=== PATIENT | female | born 1975 | race Caucasian/White ===

== ENCOUNTER 2018-12-11 18:42 | Inpatient (IN) | payer SELFPAY ==
[~2018-12-11] VITALS: Ht 167.6 cm; Wt 54.4 kg
[2018-12-11] MEDS ORDERED: OLANZAPINE 10 MG VIAL IM ONE ×2 (18:52→19:00)
[2018-12-11] MEDS ORDERED: IV NORMAL SALINE 1000 ML BAG IV ONE (19:00)
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
[2018-12-11 19:18] LABS: BASOPHILS % (AUTO) 0.2 % (0.0-2.0); EOSINOPHILS % (AUTO) 0.8 % (0.0-7.0); HEMATOCRIT 36.4 % (31.2-41.9); HEMOGLOBIN 11.9 g/dL (10.9-14.3); LYMPHOCYTES # (AUTO) 1.2 K/uL (20.0-40.0); LYMPHOCYTES % (AUTO) 20.9 % (20.5-51.5); MEAN CORPUSCULAR HEMOGLOBIN 29.4 uug (24.7-32.8); MEAN CORPUSCULAR HGB CONC 33 g/dL (32.3-35.6); MONOCYTES # (AUTO) 0.5 K/uL (2.0-10.0); MONOCYTES % (AUTO) 8.1 % (0.0-11.0); NEUTROPHILS # (AUTO) 3.9 K/uL (1.8-8.9); PLATELET COUNT (AUTO) 199 K/uL (179-408); RED BLOOD CELL COUNT(AUTO) 4.04 MIL/uL (3.63-4.92); WHITE BLOOD COUNT (AUTO) 5.6 K/uL (3.8-11.8)
[2018-12-11 19:25] LABS: CARBON DIOXIDE 23 mmol/L (21-32); CHLORIDE 107 mmol/L (98-107); GLUCOSE 134 mg/dL (74-106); POTASSIUM 3.7 mmol/L (3.5-5.1); UREA NITROGEN, BLOOD 12 mg/dL (7-18)
[2018-12-11 19:31] LABS: ALANINE AMINOTRANSFERASE 21 U/L (14-59); ALKALINE PHOSPHATASE 57 U/L (50-136); ASPARTATE AMINOTRANSFERASE 19 U/L (15-37); BILIRUBIN,DIRECT 0.2 mg/dL (0.0-0.2); BILIRUBIN,TOTAL 0.8 mg/dL (0.2-1.0); CREATINE KINASE, TOTAL 51 U/L (26-192); TOTAL PROTEIN, SERUM 6.8 g/dL (6.4-8.2)
[2018-12-11 19:32] LABS: ACETAMINOPHEN < 2.0 ug/mL (10-30)
[2018-12-11 19:34] LABS: ETHANOL < 3 MG/DL (0-0)
[2018-12-11] MEDS ORDERED: LORAZEPAM 2 MG/1 ML VIAL IV ONE (19:45)
[2018-12-11] MEDS ORDERED: LORAZEPAM 2 MG/1 ML VIAL ONE (19:47)
[2018-12-11 19:51] LABS: THYROID STIMULATING HORMONE 0.016 mIU/mL (0.358-3.740)
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
--- NOTE | 2018-12-11 20:05 | NUR ---
TRIAL OF 1PT RESTRAINT FAILED PT KEPT ASKING "WHERE IS [facility]? WHAT YEAR IS IT?" RETURNED TO 2PT SOFT B/L WRIST RESTAINTS REASSESSEDQ2, VISUAL CHECKS Q15 SKIN INTACT REFUSED REPOSITION
--- NOTE | 2018-12-11 21:13 | NUR ---
REFUSED TO DO CT AT THIS TIME. ERMD AWARE PT IS ASLEEP BUT EASILY ROUSED WILL VERBALIZE: " WHERE IS [facility]? WHAT YEAR IS IT?" REORIENTED PT COMPLIANT NAD REASSESSED SOFT RESTRAINTS Q2, VISUAL CHECK Q15 REPOSITION REFUSED
[2018-12-11 21:15] LABS: *BILIRUBIN,URIN NEGATIVE (NEGATIVE); *CLARITY,URINE SLIGHTLY CLOUDY (CLEAR); *COLOR,URINE YELLOW (YELLOW); *KETONES,URINE NEGATIVE (NEGATIVE); *UROBILINOGEN,URINE 0.2 E.U./dl (NORMAL); LEUKOCYTE ESTERASE ,URINE TRACE (NEGATIVE); NITRITE, URINE POSITIVE (NEGATIVE); UGLUCOSE NEGATIVE (NEGATIVE)
[2018-12-11 21:20] LABS: *AMPHETAMINE, URINE NEGATIVE (NEGATIVE); *BARBITURATE, URINE NEGATIVE (NEGATIVE); *CANNABINOID, URINE POSITIVE (NEGATIVE); *COCCAINE, URINE NEGATIVE (NEGATIVE); *OPIATE, URINE NEGATIVE (NEGATIVE); *PHENCYCLIDINE SCREEN,URINE NEGATIVE (NEGATIVE)
[2018-12-11 21:34] LABS: *BLOOD, URINE TRACE (NEGATIVE)
[2018-12-11 21:39] LABS: BACTERIA,URINE MANY /HPF (NONE SEEN); CALCIUM OXALATE CRYSTALS,UR FEW /HPF (NONE SEEN); MUCUS,URINE FEW /LPF (0-FEW); SQUAMOUS EPITHELIAL CELL,UR FEW /HPF (NONE SEEN)
--- NOTE | 2018-12-11 21:41 | NUR ---
AYAD BOWL SANDER FAILED TO TAKE HX FROM PT PT IS SLEEPING BUT EASILY ROUSED PT IS BASELINE POOR HISTORIAN UPON ADMISSION TO ER
--- NOTE | 2018-12-11 21:51 | NUR ---
Dr. Riggs on panel call with Dr. Liam Jon.
--- NOTE | 2018-12-11 22:19 | NUR ---
HAND OFF AND SBAR GIVEN TO LINDEN RN G20 ON LEFT WRIST. PT WILL BE ADMITTED TO TELE RM [address] ARIELLE GARCIA PT STILL ON SOFT RESTRAINTS, UNABLE TO COMPLY WITH 1PT TRIAL SIDERAILSX2 UP BED AT LOWEST POSITION [id number] AT BEDSIDE
--- NOTE | 2018-12-11 23:15 | NUR ---
PT BELONGINGS LIST CONFIRMED AND SIGNED BY 2RNS PT BELONGINGS INCLUDED UNLABELED MEDICATIONS AND CONTRABAND (CANNABIS PRODUCTS) DRILL OPERATOR, SECURITY AND RECEIVING UNIT AWARE. SAID MEDICATIONS AND CONTRABAND WAS PLACED IN A SEPARATE BAG ALONG WITH PT BELONGINGS UPON TRANSFER OF PT TRANSFERED VIA [facility] ACCOMPANIED BY ER PERSONAL PROPERTY APPRAISER PT NAD, ON SOFT RESTRAINTS B/L WRIST REASSESSED Q2 WITH VISUAL CHECKS Q15, REFUSED REPOSITIONING [id number] AT BEDSIDE SIDERAILSX2 UP, BED AT LOWEST POSITION
[2018-12-12] VITALS: BP 98/50
--- NOTE | 2018-12-12 | NUR ---
admitted this pt from er via gurney,accompanied by er nurse,with altered mental status,appears weak and very sleepy, uncooperative, refused to be assessed,getting suspicious of the nursing personnel taking care of her. unable to gather information ,kept warm and comfortable,personal belongings inventoried appropriately,admission care rendered.
[2018-12-12 00:10] VITALS: BP 90/45
[2018-12-12] MEDS ORDERED: LORAZEPAM 2 MG/1 ML VIAL IV PRN (00:15)
--- NOTE | 2018-12-12 00:30 | NUR ---
vital signs taken and recorded ,on tele sinus arrythmia noted,,pt got up hurriedly and wanting to go to the airport.attention span very short term.
[2018-12-12] MEDS ORDERED: IV NS 1000 ML 1,000 ML IV PRN (00:45)
--- NOTE | 2018-12-12 01:15 | NUR ---
ekg done by rt, took a lot of explanation before she agreed to have it done. high risk for fall, assisted to go to br and void, urine cloudy and yellow. pt appears unkept, wanting to shower at this time, getting agitated and aggressive, md notified and admission orders obtained. ivf normal saline @80ml/hr via left wrist iv site. ativan 1 mg given as ordered to help pt to calm down.slept intermittently.closely monitored for safety and comfort. needs attended to.
[2018-12-12] MEDS ORDERED: ONDANSETRON 4 MG/2 ML VIAL IV PRN (02:00)
[2018-12-12] MEDS ORDERED: ACETAMINOPHEN 325 MG TABLET PO PRN (02:00)
--- NOTE | 2018-12-12 03:00 | NUR ---
NO ACUTE DISTRESS NOTED, STILL ON TELE SR/SB 58, SLEPT AT LONG INTERVALS, NOTHING UNUSUAL NOTED,CONTINUE TO MONITOR CLOSELY.
[2018-12-12 05:11] VITALS: BP 105/52
[2018-12-12 05:12] VITALS: BP 105/52
--- NOTE | 2018-12-12 06:08 | NUR ---
REFUSED TO HAVE BLOOD DRAW AT THIS TIME,WILL TRY AT A LATER TIME.
[2018-12-12] MEDS ORDERED: PANTOPRAZOLE SODIUM 40 MG TABLET.DR PO SCH (07:00)
--- NOTE | 2018-12-12 08:22 | NUR ---
Received pt. resting in bed asleep easily arousable. Pt. denies any pain or discomfort. Pt. denies SOB or difficulty breathing. Pt. has IV in L wrist 20 gauge intact patent running NS 80 cc/ hr. Normal Sinus Rhythm. Safety measures in place. Call llight within reach. Will continue to monitor pt.
--- NOTE | 2018-12-12 08:27 | NUR ---
Pt. awake and alert. Pt. is calm and cooperative. Wanting to know plan of care. SPLUNK DASHBOARD DEVELOPER at bedside discussing plan of care with pt. Will continue to monitor pt.
[2018-12-12 08:47] LABS: BASOPHILS % (AUTO) 0.2 % (0.0-2.0); EOSINOPHILS % (AUTO) 0.9 % (0.0-7.0); HEMATOCRIT 35.9 % (31.2-41.9); HEMOGLOBIN 11.8 g/dL (10.9-14.3); LYMPHOCYTES # (AUTO) 1.5 K/uL (20.0-40.0); LYMPHOCYTES % (AUTO) 30.1 % (20.5-51.5); MEAN CORPUSCULAR HEMOGLOBIN 29.4 uug (24.7-32.8); MEAN CORPUSCULAR HGB CONC 33 g/dL (32.3-35.6); MEAN CORPUSCULAR VOLUME 89.9 fL (75.5-95.3); MONOCYTES # (AUTO) 0.4 K/uL (2.0-10.0); MONOCYTES % (AUTO) 7.9 % (0.0-11.0); NEUTROPHILS % (AUTO) 60.9 % (38.5-71.5); PLATELET COUNT (AUTO) 184 K/uL (179-408); WHITE BLOOD COUNT (AUTO) 4.9 K/uL (3.8-11.8)
[2018-12-12] MEDS ORDERED: CEFTRIAXONE 1 G in IV DEXTROSE 5% 50 ML IV SCH (09:00)
[2018-12-12 09:13] LABS: BILIRUBIN,TOTAL 1.4 mg/dL (0.2-1.0); CREATININE 0.7 mg/dL (0.6-1.3); MAGNESIUM 1.9 mg/dL (1.8-2.4); PHOSPHOROUS 3.4 mg/dL (2.5-4.9); POTASSIUM 3.8 mmol/L (3.5-5.1)
[2018-12-12 09:23] LABS: THYROID STIMULATING HORMONE 0.021 mIU/mL (0.358-3.740)
--- NOTE | 2018-12-12 11:11 | NUR ---
Pt. did not want to take antibiotics until urine culture grew back and pt. knows exact bacteria growing. Charge nurse made aware of pt. refusal of antibiotics. motion picture set up worker at bedside. Discharge orders in place. Will update pt. on plan of care.
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
[2018-12-12 12:02] VITALS: BP 111/56
--- NOTE | 2018-12-12 12:52 | NUR ---
Pt. is to be discharged out of hospital to self. Pt. signed all discharge papers. Pt. signed homeless waiver form. Completed homeless person intervention and talked with social service. Provided pt. with copy of all papers and belongings. Provided pt. with clothing appropriate to weather. Provided pt. with meal. Pt. wants to walk out from hospital to car located near hospital. IV removed. ID band removed.
--- NOTE | 2018-12-12 13:33 | NUR ---
Discharged pt. home to self. Pt. in stable condition. Walked pt. downstairs to front of lobby where pt. will be discharged to self. IV site removed. Band removed. All papers signed. Belongings with pt.
[2018-12-12] MEDS ORDERED: LISD20CA PO (17:47)
[2018-12-13 08:06] LABS: TRIIODOTHYRONINE, FREE 3.7 pg/mL (2.0-4.4)
[2018-12-13 14:09] LABS: CORTISOL 22.5 ug/dL (.)
== END 2018-12-12 13:30 | disposition home or self-care (01) | DRG 917 ==
LOC: ER 18:44 → TELE3 22:41
PROVIDERS: ADMIT Internal Medicine; ATTEND Nurse Practitioner Acute Care
DX: T40.7X1A Poisoning by cannabis (derivatives), accidental (unintentional), initial encounter (principal); G92 Toxic encephalopathy; N39.0 Urinary tract infection, site not specified; Y92.89 Other specified places as the place of occurrence of the external cause; B96.20 Unspecified Escherichia coli [E. coli] as the cause of diseases classified elsewhere; F12.20 Cannabis dependence, uncomplicated; E03.9 Hypothyroidism, unspecified
CPT/HCPCS: 36415; 70030-TC; 70450; 71045; 80307; 82533; 83605; 83735; 84100; 84443; 84481; 85025; 85730; 87040; 87077; 87086; 93005; A4663; C1758; G0378; G0480; G0480-TC; J0696; J2060; J2358; J7030; J7060

== ENCOUNTER 2018-12-12 17:35 | Emergency (ER) | payer SELFPAY ==
[~2018-12-12] VITALS: Ht 167.6 cm; Wt 54.4 kg
--- NOTE | 2018-12-12 17:45 | NUR ---
lapd at bedside talking to pt.
[2018-12-12] MEDS ORDERED: LISD20CA PO (17:47)
--- NOTE | 2018-12-12 17:56 | NUR ---
SHANELL stated pt is not in custody and left.
--- NOTE | 2018-12-12 17:58 | NUR ---
[facility] was called.
--- NOTE | 2018-12-12 17:58 | NUR ---
Pt agitated and stated she wants to leave, nely brothers called.
--- NOTE | 2018-12-12 18:01 | NUR ---
[facility] brothers team at bedside. Pt denies any S.I./H.I. Pt was offered food and water, pt calm down and agreed to stay in her room and watch TV until "she is feeling better".
--- NOTE | 2018-12-12 18:02 | NUR ---
There is no sitter/security available for 1:1 observation at this time. Pt is calm and cooperative at this time, eating and watching TV. Pt is not expressing any danger to herself or others.
[2018-12-12 18:25] LABS: BASOPHILS % (AUTO) 0.2 % (0.0-2.0); EOSINOPHILS % (AUTO) 0.7 % (0.0-7.0); HEMATOCRIT 36.3 % (31.2-41.9); HEMOGLOBIN 11.8 g/dL (10.9-14.3); LYMPHOCYTES # (AUTO) 1.9 K/uL (20.0-40.0); LYMPHOCYTES % (AUTO) 30.1 % (20.5-51.5); MEAN CORPUSCULAR HEMOGLOBIN 29.3 uug (24.7-32.8); MEAN CORPUSCULAR HGB CONC 33 g/dL (32.3-35.6); MEAN CORPUSCULAR VOLUME 90.3 fL (75.5-95.3); MONOCYTES # (AUTO) 0.5 K/uL (2.0-10.0); MONOCYTES % (AUTO) 8.4 % (0.0-11.0); NEUTROPHILS # (AUTO) 3.9 K/uL (1.8-8.9); NEUTROPHILS % (AUTO) 60.6 % (38.5-71.5); PLATELET COUNT (AUTO) 214 K/uL (179-408); RED BLOOD CELL COUNT(AUTO) 4.02 MIL/uL (3.63-4.92); WHITE BLOOD COUNT (AUTO) 6.4 K/uL (3.8-11.8)
[2018-12-12 18:33] LABS: CARBON DIOXIDE 26 mmol/L (21-32); CHLORIDE 111 mmol/L (98-107); CREATININE 0.8 mg/dL (0.6-1.3); GLUCOSE 102 mg/dL (74-106); POTASSIUM 3.7 mmol/L (3.5-5.1); UREA NITROGEN, BLOOD 7 mg/dL (7-18)
[2018-12-12 18:34] LABS: ETHANOL < 3 MG/DL (0-0)
[2018-12-12 18:47] LABS: ALANINE AMINOTRANSFERASE 21 U/L (14-59); ALKALINE PHOSPHATASE 55 U/L (50-136); ASPARTATE AMINOTRANSFERASE 18 U/L (15-37); BILIRUBIN,DIRECT 0.2 mg/dL (0.0-0.2); BILIRUBIN,TOTAL 1.1 mg/dL (0.2-1.0); TOTAL PROTEIN, SERUM 6.6 g/dL (6.4-8.2)
[2018-12-12 18:48] LABS: ACETAMINOPHEN < 2.0 ug/mL (10-30)
--- NOTE | 2018-12-12 18:58 | NUR ---
Patient discharged to home in stable conditon. Written and verbal after care instructions given. Patient verbalizes understanding of instructions.pt axox3. pt had hodpital sandwich. pt walks in steady gait. pt requested the result of lab, provided.
[2018-12-12 19:00] LABS: THYROID STIMULATING HORMONE 0.018 mIU/mL (0.358-3.740)
--- NOTE | 2018-12-12 19:22 | NUR ---
PATIENT DC HOME REFUSED SHOES AND OR HOSPITAL SLIPPERS WILL WEAR HER OWN LATER. NORMAL STEADY GAIT
[2018-12-12 19:25] VITALS: BP 125/71
== END 2018-12-12 19:25 | disposition home or self-care (01) ==
LOC: ER 17:36
DX: Z04.6 Encounter for general psychiatric examination, requested by authority (principal); E03.9 Hypothyroidism, unspecified; F12.10 Cannabis abuse, uncomplicated; Z79.899 Other long term (current) drug therapy
CPT/HCPCS: 36415; 80048; 80076; 82140; 82962; 83605; 84443; 84484; 85025; 85730; 99283; G0480 ×2; G0481; 70030-TC; A4663